=== PATIENT | female | born 1970 | race Hispanic/Latino ===

== ENCOUNTER 2018-01-30 09:46 | Outpatient (CLI) | payer BC | END 2018-01-30 09:47 | disposition home or self-care (01) | LOC: BICMAMMO 09:46 | PROVIDERS: ATTEND Family Medicine | DX: Z12.31 Encounter for screening mammogram for malignant neoplasm of breast (principal) | CPT/HCPCS: 77063; 77067 ==

== ENCOUNTER 2019-02-01 08:40 | Outpatient (CLI) | payer BC ==
--- NOTE | 2019-02-01 09:18 | MMO ---
Bilateral MAMMO Bilat Screen [facility]. CLINICAL HISTORY: Patient is 49 years old and is seen for screening. The patient has no family history of breast cancer. The patient has no personal history of cancer. VIEWS: The views performed were: bilateral craniocaudal with tomosynthesis and bilateral mediolateral oblique with tomosynthesis. FILMS COMPARED: The present examination has been compared to prior imaging studies performed at [facility] on 03/30/2015, 04/13/2015, 12/26/2016 and 01/30/2018. MAMMOGRAM FINDINGS: There are scattered fibroglandular densities. There is a new equal density, oval mass measuring 7 millimeters with circumscribed margins seen in the anterior inner region of the right breast. In the left breast, there are no suspicious masses, calcifications or areas of architectural distortion. IMPRESSION: NEW MASS IN THE RIGHT BREAST REQUIRES ADDITIONAL EVALUATION. AN ULTRASOUND EXAM IS RECOMMENDED. THE RESULTS OF THIS EXAM WERE SENT TO THE PATIENT. ACR BI-RADS Category 0 - Incomplete: Need additional imaging evaluation. [facility] will notify the patient of the need for additional imaging services. MAMMOGRAPHY NOTE: 1. A negative mammogram report should not delay a biopsy if a dominant of clinically suspicious mass is present. 2. Approximately 10% to 15% of breast cancers are not detected by mammography. 3. Adenosis and dense breasts may obscure an underlying neoplasm. Reported by: FRAN POWELL MD Electonically Signed: [id number]
== END 2019-02-01 08:41 | disposition home or self-care (01) ==
LOC: BICMAMMO 08:40
PROVIDERS: ATTEND Family Medicine
DX: Z12.31 Encounter for screening mammogram for malignant neoplasm of breast (principal); N63.10 Unspecified lump in the right breast, unspecified quadrant
CPT/HCPCS: 77063; 77067

== ENCOUNTER 2019-04-26 10:15 | Outpatient (CLI) | payer BC ==
--- NOTE | 2019-04-26 13:09 | ULT ---
RIGHT BREAST DIAGNOSTIC ULTRASOUND: INDICATIONS: Right breast mass at the 2 o'clock position, 2 cm from the nipple. FINDINGS: Corresponding to the mammographic abnormality is a 7 x 2.6 mm anechoic cyst. IMPRESSION: BI-RADS category 2 - benign. The mammographic abnormality in the right breast 2 o'clock position kamaljit esponds to a simple cyst. The patient was counseled on the findings prior to leaving the Breast [facility] POS: OFF
== END 2019-04-26 10:16 | disposition home or self-care (01) ==
LOC: BICULT 10:15
PROVIDERS: ATTEND Family Medicine
DX: N63.12 Unspecified lump in the right breast, upper inner quadrant (principal)

== ENCOUNTER 2021-02-17 10:11 | Outpatient (CLI) | payer BC | END 2021-02-17 10:12 | disposition home or self-care (01) | LOC: BICMAMMO 10:11 | PROVIDERS: ATTEND Family Medicine | DX: Z12.31 Encounter for screening mammogram for malignant neoplasm of breast (principal) | CPT/HCPCS: 77063; 77067 ==